=== PATIENT | female | born 1985 | race Caucasian/White ===

== ENCOUNTER 2018-05-19 08:34 | Emergency (ER) | payer MEDICAID ==
[2018-05-19 09:34] LABS: Bilirubin Negative (Negative); Blood, Urine Large (Negative); Glucose, Urine (Dipstick) Negative (Negative); Leukocyte Small (Negative); Nitrite Negative (Negative); Protein, Urine (Dipstick) 30 mg/dL (Neg-Trace); Urobilinogen 0.2 mg/dL (0.2-1.0); pH, Urine 6.5 (5.0-9.0)
[2018-05-19 09:36] LABS: Clarity Hazy (Clear)
[2018-05-19 09:41] LABS: Bacteria/HPF 2+ HPF (None Seen); Squamous Epithelial 0-3 HPF (0-3)
== END 2018-05-19 10:06 | disposition home or self-care (01) ==
LOC: SCSER 08:34
DX: O23.42 Unspecified infection of urinary tract in pregnancy, second trimester (principal); Z3A.16 16 weeks gestation of pregnancy
CPT/HCPCS: 51701; 81003; 81015; A4353

== ENCOUNTER 2018-08-05 10:25 | Emergency (ER) | payer MEDICAID, OTHER ==
[2018-08-05] MEDS ORDERED: Nitrazine Tape 1 ROLL ONE (10:50)
[2018-08-05 10:54] LABS: Bilirubin Small (Negative); Blood, Urine Negative (Negative); Clarity Slightly Cloudy (Clear); Glucose, Urine (Dipstick) Negative (Negative); Leukocyte Trace (Negative); Nitrite Negative (Negative); Protein, Urine (Dipstick) 30 mg/dL (Neg-Trace); Specific Gravity, Urine 1.025 (1.005-1.030); Urobilinogen 0.2 mg/dL (0.2-1.0); pH, Urine 6.5 (5.0-9.0)
[2018-08-05 11:00] LABS: Bacteria/HPF 3+ HPF (None Seen); RBC/HPF 0-3 HPF (0-3)
[2018-08-05 11:01] LABS: Hyaline Casts/LPF 0-3 HYALINE CAST LPF (0-3 Hyaline)
== END 2018-08-05 11:25 | disposition home or self-care (01) ==
LOC: SCSER 10:25
DX: Z34.82 Encounter for supervision of other normal pregnancy, second trimester (principal); Z86.711 Personal history of pulmonary embolism; Z79.899 Other long term (current) drug therapy
CPT/HCPCS: 81003; 81015; 87086

== ENCOUNTER 2018-08-05 11:59 | Day surgery (SDC) | payer OTHER ==
[2018-08-05 12:38] VITALS: BMI 33.2
--- NOTE | 2018-08-05 13:23 | PDOC.LDHP ---
Labor and Delivery H&P Chief complaint: loss of fluid HPI: 33 yo F @ 28.1 weeks comes in to assess for leakage of fluid. Pt states around 2:00 noticed that her underwear was wet. Says she then noticed persistent leakage of fluid throughout the day. Thought possibly felt some warm fluid when showering. [facility] to [facility] to be assessed. They performed a speculum exam which only showed minimal white discharge. Nitrizine strip was yellow. Pt then came here for further assessment as she has had hx of delivery. +FM, denies ctx, denies any urinary sx's. Denies any vaginal discharge, itching or irritation. Denies any recent intercourse. Denies any fever or chills or any abdominal pain. Current gestational age (weeks): 28 (1 day) Due date: 10/27/18 Grav: 5 Para: 4 OB History Details: Hx of delivery @ 28 weeks in 2nd Hx x2 Hx of cerclage in 3rd Current complications: other (Pulmonary Embolus found at 14 weeks) Abnormal US findings: No Current medications: pre- vitamins, other (Lovenox, progesterone) Previous surgical history: low tranverse CS (x2) - Physical Exam Vital signs reviewed and normal: yes Abnormal vital signs: Spedculum Exam: No bleeding. No pooling noted. Cervix closed. General: NAD, resting Heart: other Lungs: nonlabored breathing Abdomen: NTTP Extremeties: no edema FHT: category 1, variability present [place] contractions every: only a few ctx noted - OB Labs Blood type: unknown RH: unknown Antibody Screen: unknown HIV: unknown RPR: unknown HEPSAg: unknown 1 hour GCT: unknown - Assessment Leakage of fluid - Plan Plan: observation in L&D -: 33 yo F @ 28.1 weeks comes in to assess for leakage of fluid -U/A repeated with clean catch and was negative. -VP3 pending -Speculum exam performed and no pooling noted. Cervix closed. Nonodorous white discharge noted. -Category 1 strip on FHT monitoring. No concerns At this time will have pt f/u with PCP. No sign of infection. Likely loss of urine due to . <Rg Mercedes - Last Filed: 08/05/18 14:06> <Hussein Erazo - Last Filed: 08/05/18 18:13> Allergies/Adverse Reactions: Allergies Allergy/AdvReac Type Severity Reaction Status Date / Time No Known Allergies Allergy Unverified 08/05/18 12:25 Attending Addendum - Attending Addendum Date/Time: 08/05/181812 I personally evaluated the patient and discussed the management with Dr. Mercedes I agree with the History, Examination, Assessment and Plan documented above with any addition or exceptions noted below. VP3 neg. Pt called and notified of results. <Hussein Erazo - Last Filed: 08/05/18 18:13>
[2018-08-05 13:31] LABS: Amnisure Test No Membranes Rupture (No Rupture)
[2018-08-05 13:32] LABS: Amnisure Internal Control QC ACCEPTABLE (ACCEPTABLE)
[2018-08-05 13:46] LABS: Bilirubin Negative (Negative); Blood, Urine Negative (Negative); Clarity CLEAR (Clear); Glucose, Urine (Dipstick) Negative (Negative); Leukocyte Negative (Negative); Nitrite Negative (Negative); Protein, Urine (Dipstick) Trace mg/dL (Neg-Trace); Specific Gravity, Urine 1.024 (1.002-1.036)
== END 2018-08-05 14:11 | disposition home or self-care (01) ==
LOC: L&D/OP 11:59
PROVIDERS: ATTEND Obstetrics & Gynecology
DX: O99.89 Other specified diseases and conditions complicating pregnancy, childbirth and the puerperium (principal); N89.8 Other specified noninflammatory disorders of vagina; Z3A.28 28 weeks gestation of pregnancy; Z79.899 Other long term (current) drug therapy; Z98.891 History of uterine scar from previous surgery
CPT/HCPCS: 81003; 81015; 84112; 87086; 87480; 87510; 87660; 99283; 99285

== ENCOUNTER → 2018-10-16 | Day surgery (SDC) | payer OTHER ==
[~2018-10-16] MED LIST: Azithromycin 500 MG in Sodium Chloride 0.9% 250 ML 250 ML IVPB SCH; Bicitra 30 ML UDCUP PO SCH; Butorphanol Tartrate 1 MG/ML VIAL SLOW IVP PRN; CEFAZOLIN 2 GM/50 ML-DEXTROSE 2 GM in Premix Bag 1 BAG IVPB SCH; CEFAZOLIN/Water 2 GM/20 ML SYRINGE SLOW IVP SCH; Lactated Ringer's 1,000 ML IV SCH; Oxytocin 10 UNITS/ML VIAL ONE; Promethazine HCl 25 MG/ML VIAL IM PRN
[2018-10-16 22:11] VITALS: BP 128/87; TEMP 98.7; BMI 34.8
--- NOTE | 2018-10-16 22:11 | PDOC.EVN ---
Event Note - Event Note Event Note: Patient here for SROM at 1830 S/P Lovenox 100mg last at 1800 today Meds: Lovenox 100mg BID (HX PE this , first trimester) Patient of Dr leung here for srom. Has repeat CS tomoorw AM HPI: 33 yo at 38 weeks 3 days with SROM, PE this pregancy on anticogulation with lovenox. Review of Systems: no VB, no BEYER, no recent trauma Current gestational age (weeks): 38 (3 days) Dating criteria: last menstrual period Grav: 5 Para: 4 OB History Details: CS X 3 Current complications: other (HX PE this ) Current medications: pre- vitamins, other (Lovenox 100mg BIB) Allergies/Adverse Reactions: Allergies Allergy/AdvReac Type Severity Reaction Status Date / Time No Known Allergies Allergy Unverified 08/05/18 12:25 Social history: none - Physical Exam Vital signs reviewed and normal: yes General: NAD Heart: RRR Lungs: CTAB Abdomen: gravid Extremeties: no edema FHT: category 1 [place] contractions every: none - Vaginal Exam cm dilated: 1 Effacement: 25% Station: -1 - Assessment L&D Assessment: term rupture in membranes Early term SROM, PROM...GBS negative. on full dose lovenox - Plan Plan: admit to L&D, anesthesia consult for pain management, other (For CS in AM (12 hrs after last dose); anesthesia to be notified; protamine sulfate if needed if labors tonight. Dr Leung aware)
--- NOTE | 2018-10-16 22:18 | PDOC.LDHP ---
Labor and Delivery H&P Chief complaint: loss of fluid HPI: H&P FULL H&P entered under EVENT NOTE Please see that EMR entry In brief...prior CS x 3, on lovenox 100mg BID for PE HX this , with PROM at 1830 today. EGA 38 weeks [address] Danielle For CD scheduled tomorrow, and RRS as well. We will obs here overnight since SROM, GBS neg T&C for 2 units SCDs Zmax ordered with Ancef Allergies/Adverse Reactions: Allergies Allergy/AdvReac Type Severity Reaction Status Date / Time No Known Allergies Allergy Verified 10/16/18 22:12
[2018-10-17 00:46] LABS: Hemoglobin 9.7 g/dL (12.0-16.0); Mean Corpuscular HGB CONC 31.8 g/dL (32.0-36.0); Mean Corpuscular Hemoglobin 26.1 pg (27.0-31.0); Mean Corpuscular Volume 82.1 fL (78.0-98.0); Mean Platelet Volume 10.1 fL (7.4-10.4); Platelet Count 157 thou/uL (130-400); RBC Distribution Width 14.4 % (11.5-14.5); Red Blood Cell (RBC) Count 3.72 mill/uL (4.20-5.40)
[2018-10-17 01:23] LABS: Syphilis Antibody Nonreactive (Nonreactive); Syphilis Antibody Index 0.04 S/CO (<1.00 Non-Reactive)
[2018-10-17 01:35] LABS: HBSAg Index 0.17 S/CO (0-0.99); HIV (1/2) Antibody/Antigen Non-Reactive (NonReactive); HIV 1/2 INDEX 0.06 S/CO (<1.00); Hep B Surf Ag Non-Reactive S/CO (NonReactive)
== END ==
LOC: L&D/OP 21:00
PROVIDERS: ATTEND Obstetrics & Gynecology
DX: O42.92 Full-term premature rupture of membranes, unspecified as to length of time between rupture and onset of labor (principal); Z3A.38 38 weeks gestation of pregnancy; Z86.711 Personal history of pulmonary embolism; Z79.01 Long term (current) use of anticoagulants; Z79.899 Other long term (current) drug therapy
CPT/HCPCS: 86780; 86850; 86900; 86901; 87340; 87389; J2590

== ENCOUNTER 2018-10-17 05:46 | Inpatient (IN) | payer OTHER ==
--- NOTE | 2018-10-16 21:53 | PDOC.LDHP ---
Labor and Delivery H&P HPI: Patient here for SROM at 1830 S/P Lovenox 100mg last at 1800 today Meds: Lovenox 100mg BID (HX PE this , first trimester) Patient of Dr leung here for srom. Has repeat CS tomoorw AM HPI: 33 yo at 38 weeks 3 days with SROM, PE this pregancy on anticogulation with lovenox. Review of Systems: no VB, no BEYER, no recent trauma Current gestational age (weeks): 38 (3 days) Dating criteria: last menstrual period Grav: 5 Para: 4 OB History Details: CS X 3 Current complications: other (HX PE this ) Current medications: pre-chapito vitamins, other (Lovenox 100mg BIB) Allergies/Adverse Reactions: Allergies Allergy/AdvReac Type Severity Reaction Status Date / Time No Known Allergies Allergy Unverified 08/05/18 12:25 Social history: none - Physical Exam Vital signs reviewed and normal: yes General: NAD Heart: RRR Lungs: CTAB Abdomen: gravid Extremeties: no edema FHT: category 1 [place] contractions every: none - Vaginal Exam cm dilated: 1 Effacement: 25% Station: -1 - Assessment L&D Assessment: term rupture in membranes Early term SROM, PROM...GBS negative. on full dose lovenox - Plan Plan: admit to L&D, anesthesia consult for pain management, other (For CS in AM (12 hrs after last dose); anesthesia to be notified; protamine sulfate if needed if labors tonight. Dr Leung aware)
[~2018-10-17 05:46] MED LIST changes: -Azithromycin 500 MG in Sodium Chloride 0.9% 250 ML 250 ML IVPB SCH; -CEFAZOLIN 2 GM/50 ML-DEXTROSE 2 GM in Premix Bag 1 BAG IVPB SCH; -Oxytocin 10 UNITS/ML VIAL ONE
[2018-10-17] MEDS ORDERED: CEFAZOLIN 2 GM/50 ML BAG ONE (06:42)
[2018-10-17] MEDS ORDERED: Bicitra 30 ML UDCUP ONE (06:42)
[2018-10-17] MEDS: Lactated Ringer's 1,000 ML IV SCH ×3 (07:03→23:31)
[2018-10-17 07:07] VITALS: BMI 35.0
[2018-10-17] MEDS ORDERED: CEFAZOLIN/Water 2 GM/20 ML SYRINGE SLOW IVP SCH (07:11)
[2018-10-17] MEDS ORDERED: Lactated Ringer's 1,000 ML IV SCH ×2 (07:11→20:33)
[2018-10-17] MEDS ORDERED: Bicitra 30 ML UDCUP PO SCH (07:11)
[2018-10-17] MEDS ORDERED: Ondansetron PF 4 MG/2 ML Vial IVP PRN ×2 (07:11→18:22)
[2018-10-17] MEDS ORDERED: Promethazine HCl 25 MG/ML VIAL IM PRN ×3 (07:11→20:33)
[2018-10-17] MEDS ORDERED: CEFAZOLIN 2 GM/50 ML-DEXTROSE 2 GM in Premix Bag 1 BAG IVPB SCH (07:30)
[2018-10-17] MEDS ORDERED: Ondansetron PF 4 MG/2 ML Vial ONE ×2 (13:07→18:06)
[2018-10-17] MEDS ORDERED: ePHEDrine/0.9% NaCl/PF SYRINGE 50 mg/10 ml ONE ×2 (13:07→18:06)
[2018-10-17] MEDS ORDERED: Morphine PF 1 MG/ML SYR ONE (18:06)
[2018-10-17] MEDS ORDERED: Oxytocin 10 UNITS/ML VIAL ONE (18:06)
[2018-10-17] MEDS ORDERED: Naloxone HCl 0.4 mg/ml Vial IV PRN (18:22)
[2018-10-17] MEDS ORDERED: HYDROmorphone 2 MG/ML VIAL SLOW IVP PRN (18:22)
[2018-10-17] MEDS ORDERED: L&D-Morphine 4 MG/ML VIAL SLOW IVP PRN (18:22)
[2018-10-17] MEDS ORDERED: diphenhydrAMINE 50 MG/ML VIAL IVP PRN (18:22)
[2018-10-17] MEDS ORDERED: Ketorolac Tromethamine 30 MG/ML VIAL IVP PRN (18:22)
[2018-10-17] MEDS ORDERED: Naloxone HCl 0.4 mg/ml Vial IVP PRN ×2 (18:22)
[2018-10-17] MEDS ORDERED: Meperidine HCl/PF 25 MG/ML VIAL SLOW IVP PRN (18:22)
[2018-10-17] MEDS ORDERED: Eucerin (Mineral Oil/Petrolatum,White) 30 gm Jar TOP PRN (18:22)
[2018-10-17] MEDS ORDERED: Promethazine HCl 25 MG SUPP PR PRN (18:22)
[2018-10-17] MEDS ORDERED: Ondansetron HCl/PF 4 MG/2 ML Vial IVP PRN (18:22)
[2018-10-17] MEDS ORDERED: Ketorolac Tromethamine 30 MG/ML VIAL IVP SCH (18:30)
[2018-10-17] MEDS ORDERED: Communication Order-Pharmacy FS SCH (18:30)
--- NOTE | 2018-10-17 20:27 | OP ---
DATE OF PROCEDURE: 10/17/2018 PREOPERATIVE DIAGNOSES: Thirty-seven weeks with spontaneous rupture of membranes, prior section x2, family history of ovarian cancer, and obstetrical pulmonary embolism at 14 weeks gestation, fully anticoagulated on Lovenox. POSTOPERATIVE DIAGNOSES: Thirty-seven weeks with spontaneous rupture of membranes, prior section x2, family history of ovarian cancer, and obstetrical pulmonary embolism at 14 weeks gestation, fully anticoagulated on Lovenox. PROCEDURES PERFORMED: Repeat low transverse section with bilateral risk producing salpingectomy. PARTS CASTING MACHINE OPERATOR: Peewee Alvarado MD ANESTHESIOLOGIST: Garry Mcelroy MD ANESTHESIA: Subarachnoid block. ESTIMATED BLOOD LOSS: Less than 500 mL. COMPLICATIONS: None. DRAINS: Gustafson to gravity. MEDICATIONS: 2 g Ancef. PREINCISION: DVT prophylaxis with SCD. FINDINGS: 1. Vigorous male , cephalic presentation, nursery. 2. Normal-appearing uterus, tubes, and ovaries bilaterally. 3. Hemostasis, clear urine. COUNTS: Correct at the end of the procedure. PATHOLOGY SPECIMEN: Bilateral fallopian tubes. DESCRIPTION OF OPERATIVE PROCEDURE: The patient presented at approximately 2200 hours on 10/16. She was originally scheduled for repeat section at 0730 hours on 10/17. She took her last dose of Lovenox at 1800 on 10/16. After discussing with Anesthesia, they realized that the patient was on full anticoagulation at 1 mg/kg per day of Lovenox, they resumed 40 mg b.i.d. prophylaxis that was because of their literature recommended waiting 24 hours for neuraxial anesthesia. The patient was having occasional contractions, category 1 tracing and stable vital signs. Because of this, decision was made to postpone repeat section for 24 hours. The patient was taken back to the operating room, where subarachnoid block was achieved without difficulty. The patient was prepped and draped in the usual manner and previous Pfannenstiel incision identified, incised sharply, carried down to the fascia. The midline was tented superiorly and laterally with curved Quinteros scissors. Rectus dissected off sharply superiorly and inferiorly, divided midline. Peritoneum entered bluntly, taken without trauma to the underlying viscera. Cesaroi O retractor was placed inside. Vesicouterine peritoneum incised sharply and bladder dissected off the lower uterine segment. Low transverse hysterotomy made. Clear fluid noted in cephalic presentation. The infant was delivered onto the abdomen, suctioned, cord was clamped, cut, and handed off to the team in attendance. Usual cord blood sample obtained. Placenta removed manually. Uterus inspected. Hysterotomy was noted to be without extension, was closed in a running locking #1 Monocryl suture x1 layer. Good hemostasis noted and the hysterotomy was packed. Fundus was elevated. The hysterotomy was noted to be somewhat arcuate in appearance. The left fallopian tube was isolated with a Juan Pablo and a window was created in the mesosalpinx. Angela clamps were placed across the intervening mesosalpinx and the fallopian tube excised from the distal end all the way up to its insertion in the uterus. Pedicles in the medial salpinx were tied off using 0 chromic suture. Good hemostasis was noted. Attention was turned to the right fallopian tube, where the identical procedure was carried out. Both fallopian tubes were sent for pathologic analysis. Reinspection of the mesosalpinx revealed it to be dry and hemostatic. Reinspection of the hysterotomy revealed it to be dry. Gutters were irrigated out bilaterally. The Cesario O retractor removed and the rectus inspected to be dry. Counts were correct x1 at this point in time and the fascia was reapproximated using 0 PDS suture x2. Subcutaneous tissue irrigated, rendered hemostatic with Bovie cautery, reapproximated using a 2-0 plain gut. Skin reapproximated using a 4-0 Monocryl subcuticular and Dermabond. The patient was taken to recovery room in good condition. Postoperative care was discussed with Dr. Daysi Murray, Hematology/Oncology. We will start the patient back on 1 mg/kg/day subcutaneous Lovenox beginning approximately 0600 hours on 10/18. Job ID: [id number]
[2018-10-17] MEDS ORDERED: Meperidine HCl/PF 25 MG/ML VIAL IM PRN (20:33)
[2018-10-17] MEDS ORDERED: Bisacodyl 10 MG SUPP PR PRN (20:33)
[2018-10-17] MEDS ORDERED: Acetaminophen 325 MG TAB PO PRN (20:33)
[2018-10-17] MEDS ORDERED: NS / Oxytocin 40 units/1000ml 1,000 ML IV SCH (20:33)
[2018-10-17] MEDS ORDERED: Zolpidem Tartrate 5 MG TAB PO PRN (20:33)
[2018-10-17] MEDS ORDERED: Lanolin Ointment 7 GM TUBE TOP PRN (20:33)
[2018-10-17] MEDS: Docusate Calcium (SURFAK) 240 MG CAP PO SCH (23:31)
[2018-10-18] MEDS: diphenhydrAMINE 25 MG CAP PO PRN ×2 (00:18→06:48)
[2018-10-18] MEDS: Ondansetron PF 4 MG/2 ML Vial IVP PRN ×2 (00:18→10:51)
--- NOTE | 2018-10-18 01:55 | OP ---
DATE OF PROCEDURE: 10/17/2018 see other complete op note. phone connection lost Job ID: [id number] MTDD
[2018-10-18] MEDS ORDERED: Enoxaparin Sodium 100 MG/ML SYRINGE SC SCH (06:00)
[2018-10-18 06:13] LABS: Hemoglobin 9.4 g/dL (12.0-16.0); Mean Corpuscular HGB CONC 31.3 g/dL (32.0-36.0); Mean Corpuscular Hemoglobin 25.5 pg (27.0-31.0); Mean Corpuscular Volume 81.5 fL (78.0-98.0); Mean Platelet Volume 9.5 fL (7.4-10.4); Platelet Count 125 thou/uL (130-400); RBC Distribution Width 14.4 % (11.5-14.5); Red Blood Cell (RBC) Count 3.69 mill/uL (4.20-5.40); White Blood Cell (WBC) Count 8.2 thou/uL (4.8-10.8)
[2018-10-18] MEDS: Enoxaparin Sodium 100 MG/ML SYRINGE SC SCH ×2 (06:22→18:09)
[2018-10-18] MEDS: HYDROcodone/Acetaminophen 5/325 mg Tablet PO PRN ×5 (06:48→21:12)
[2018-10-18] MEDS: Lactated Ringer's 1,000 ML IV SCH ×2 (08:21→14:24)
[2018-10-18] MEDS: Prenatal Vitamin 1 TAB PO SCH (08:52)
[2018-10-18] MEDS: Docusate Calcium (SURFAK) 240 MG CAP PO SCH ×2 (08:52→21:11)
[2018-10-18] MEDS ORDERED: Sodium Chloride 0.9% 10 ML ONE (10:46)
[2018-10-18] MEDS: Simethicone Chewable 80 MG TAB PO PRN ×2 (10:52→21:11)
[2018-10-18] MEDS ORDERED: Famotidine 20 MG TAB PO SCH (12:15)
[2018-10-18] MEDS: Ibuprofen 800 MG TAB PO SCH ×2 (13:10→22:00)
[2018-10-18] MEDS ORDERED: Adacel (T-DAP) 0.5 ML SYRINGE IM ONE (20:33)
[2018-10-19] MEDS: Lactated Ringer's 1,000 ML IV SCH ×2 (01:31→08:26)
[2018-10-19] MEDS: HYDROcodone/Acetaminophen 5/325 mg Tablet PO PRN ×4 (01:32→14:31)
[2018-10-19] MEDS: Enoxaparin Sodium 100 MG/ML SYRINGE SC SCH (05:58)
[2018-10-19] MEDS: Ibuprofen 800 MG TAB PO SCH ×2 (06:00→13:22)
--- NOTE | 2018-10-19 08:16 | PDOC.PP ---
Post Progress Note Post Day #: 2 PO intake tolerated: yes Flatus: yes Ambulation: yes Vital Signs (12 hours) Temp Pulse Resp BP Pulse Ox 10/19/18 01:38 98.3 F 62 18 111/69 10/18/18 20:33 98.8 F 85 17 111/71 100 Weight Weight 217 lb - Physical Examination Respiratory: clear to auscultation bilaterally, non-labored breathing Abdominal: + bowel sounds, lochia, no distention, appropriately TTP Extremities: negative homans (B) Skin: CS incision dry & intact Result Diagrams: 10/18/18 05:55 - Assessment/Plan post op day 2-repear c/s on lovenox for h/o antepartum PE. Doing well. Desires to go home. D/c today. F/ u with dr leung
[2018-10-19 08:32] VITALS: TEMP 98.1
[2018-10-19] MEDS ORDERED: Famotidine 20 MG TAB PO SCH (09:00)
[2018-10-19] MEDS: Docusate Calcium (SURFAK) 240 MG CAP PO SCH (09:05)
[2018-10-19] MEDS: Prenatal Vitamin 1 TAB PO SCH (09:05)
[2018-10-19] MEDS: Simethicone Chewable 80 MG TAB PO PRN (10:40)
[2018-10-19 11:42] VITALS: BP 122/74
== END 2018-10-19 15:29 | disposition home or self-care (01) | DRG 785 ==
LOC: NSY 05:46 → L&D 05:58 → 3SW 22:51
PROVIDERS: ADMIT Obstetrics & Gynecology; ATTEND Obstetrics & Gynecology
PROC: 10D00Z1 Extraction of Products of Conception, Low, Open Approach (ICD-10-PCS; principal; 2018-10-17)
PROC: 0UB70ZZ Excision of Bilateral Fallopian Tubes, Open Approach (ICD-10-PCS; 2018-10-17)
DX: O34.211 Maternal care for low transverse scar from previous cesarean delivery (principal); Z3A.38 38 weeks gestation of pregnancy; Z37.0 Single live birth; Z86.711 Personal history of pulmonary embolism; Z79.01 Long term (current) use of anticoagulants; Z80.41 Family history of malignant neoplasm of ovary
CPT/HCPCS: 36415; 51702; 85027; 86780; 86850; 86900; 86901; 87340; 87389; 88302; 99285; J1650; J1885; J2175; J2274; J2405; J2590

== ENCOUNTER 2018-10-20 00:31 | Emergency (ER) | payer OTHER | END 2018-10-20 01:39 | disposition home or self-care (01) | LOC: ERS 00:31 | DX: O99.89 Other specified diseases and conditions complicating pregnancy, childbirth and the puerperium (principal); G89.18 Other acute postprocedural pain; Z86.711 Personal history of pulmonary embolism; Z79.899 Other long term (current) drug therapy | CPT/HCPCS: 99283 ==